=== PATIENT | female | born 1930 | race Caucasian/White ===

== ENCOUNTER 2016-11-04 14:34 | Inpatient (IN) | payer MEDICARE, OTHER ==
--- NOTE | ~2016-11-04 | OP ---
Record Of Operation [facility] [address] [place]. [address] NAME: JAYMIE GALINDO : [birth year] STATUS : DIS IN PAT#: [id number] AGE: 86 ADM/REG DATE : 11/04/16 MR#: [id number] REPORT SERV DATE: 11/10/16 DICTATED BY: REGINALDO LUO DATE: 11/10/16 REPORT STATUS : Draft TRANSCRIBED BY: MODEloy DATE: 11/10/16 DATE OF PROCEDURE: 11/04/2016 PREOPERATIVE DIAGNOSIS: Right trimalleolar open ankle fracture. POSTOPERATIVE DIAGNOSIS: Right trimalleolar open ankle fracture. PROCEDURE: 1. Right pulse lavage and debridement of right open ankle fracture. 2. Right distal fibular ankle fracture ORIF. 3. Right medial malleolar ankle fracture ORIF. 4. Right closed treatment of posterior malleolar ankle fracture. 5. Primary closure of a right open ankle fracture. SURGEON: Sailaja Luo, D.P.MDillon ANESTHESIA: Local anesthetic. ESTIMATED BLOOD LOSS: Minimal. COMPLICATION: None. INJECTABLES: Approximately 30 mL of a 1:1 mixture of 1% Xylocaine plain and 0.5% Marcaine plain. MATERIALS: Include one-third tubular neutralization plate with 3.5 screw fixation, 4.0 cancellous screws, 2-0 and 4-0 Vicryl, 4-0 nylon. CULTURES: Include aerobic, anaerobic, acid fast, fungal, Gram stain. PROCEDURE IN DETAIL: Under mild sedation, the patient was brought to the operating room and placed on the operating table in supine position. Following general anesthesia, local anesthesia obtained about the patient's right ankle. Right foot, ankle, and lower leg were scrubbed, prepped, and draped in usual aseptic manner. Attention was directed to the procedure. Procedure #1 is right lavage and debridement of open ankle fracture. Attention was directed to the open laceration into the medial aspect of the distal tibia. This measured approximately 6-8 cm. There was no exposed bone present. There was minimal to no debris visualized. At this time, copious lavage in a pulsed fashion was performed. This was done gently around the skin as the skin was atrophic and deep subcutaneous and deep fascia tissues. This was done more aggressively. Post irrigation deep cultures were taken. Attention now was directed to the next procedure. The next procedure is right distal fibular ankle fracture ORIF. Attention now was directed to the lateral aspect of the patient's right distal fibula and lateral malleolus where a Record Of Operation [facility] [address] [facility] [place] [address] NAME: JAYMIE GALINDO : [birth year] STATUS : DIS IN PAT#: [id number] AGE: 86 ADM/REG DATE : 11/04/16 MR#: [id number] REPORT SERV DATE: 11/10/16 DICTATED BY: REIGNALDO LUO DATE: 11/10/16 REPORT STATUS : Draft TRANSCRIBED BY: JOSEPHINE DATE: 11/10/16 linear 6-cm incision made along the course of the distal fibula and lateral malleolus. The incision was deep in subcutaneous tissue with care being taken to identify and retract all vital neurovascular structures. All bleeders were cauterized and ligated as necessary. At this time, a blunt dissection was continued down to the level of the fracture site of the distal fibula. Deep retraction ensued anteriorly and posteriorly. At this time, hematoma formation was debrided and irrigated from the fracture site. At this time, with increased deformity and distraction, reduction ensued with fracture reduction clamps. Next, utilizing standard AO principles and techniques, a 3.5 cortical bone screw was placed across the fracture site with excellent reduction noted. Next, one-third tubular neutralization plate was contoured and placed to the lateral aspect of the distal fibula and lateral malleolus with locking/nonlocking screw fixation. Care was being taken to prevent intra-articular excursion. Copious irrigation ensued. Deep superficial fascia reapproximated with 2-0 and 4-0 Vicryl, skin was reapproximated and coapted utilizing 4-0 nylon. Attention now was directed to the medial aspect. At this time, attention was directed to the medial aspect where further irrigation ensued at the level of the open fracture site through the 6-8 cm laceration, deep dissection continued down to the level of the medial malleolus. At this time, the fractured medial malleolus was identified and the interfrag hematoma was debrided and irrigated. At this time, reduction ensued with fracture reduction clamps. Care was being taken to identify and protect the posterior tibial tendon. Two cancellous 4.0 screws were placed across the fracture site in a cannulated fashion. Excellent positioning was noted. Good purchase was present. After further irrigation, the deep and superficial fascia reapproximated and coapted utilizing 2-0 and 4-0 Vicryl, skin was reapproximated and coapted utilizing 4-0 nylon in an interrupted suture technique. Adaptic was applied to the incision site and a well-padded sterile dressing was placed about the patient's right foot and ankle. Next procedure is closed treatment of posterior fracture. At this time, the small posterior fracture was again treated in a closed fashion. The patient tolerated the procedure and anesthesia well and was transferred to recovery room with vital signs stable and vascular status intact to all toes. Following a period of postoperative monitoring, the patient will be admitted for IV antibiotics. We will wait on cultures to come back and monitor her. The patient will be strict nonweightbearing at all times. Ice and elevate as directed. Take medications as prescribed and follow up with Dr. Luo in 7 to 14 days. ZAMZAM/JOSEPHINE Ania MckoyPAysha. / [id number] CC: Record Of Operation [address] [address] NAME: JAYMIE GALINDO : [birth year] STATUS : DIS IN PAT#: [id number] AGE: 86 ADM/REG DATE : 11/04/16 MR#: [id number] REPORT SERV DATE: 11/10/16 DICTATED BY: REGINALDO LUO DATE: 11/10/16 REPORT STATUS : Draft TRANSCRIBED BY: MODL DATE: 11/10/16 Chandrakant Mckoy M.D.
--- NOTE | ~2016-11-04 | HP ---
History And Physical [address] [place]. [address] NAME: JAYMIE GALINDO : [birth year] STATUS : REG [facility]#: [id number] AGE: 86 ADM/REG DATE : 11/04/16 MR#: [id number] REPORT SERV DATE: 11/04/16 DICTATED BY: BUCKYDOUGLAS DATE: 11/04/16 REPORT STATUS : Draft TRANSCRIBED BY: MODL DATE: 11/04/16 DATE OF ADMISSION: 11/04/2016 HISTORY OF PRESENT ILLNESS: The patient is a very pleasant 86-year-old female, who basically this morning fell because she had some dizziness and presyncopal episode on her porch and developed fracture on her right ankle. It is actually severe open fracture, and before even I saw the patient, emergency room physician Dr. Garvin called Orthopedics and Dr. Murphy came by and Dr. Murphy put splint on her leg with Dr. Garvin helping him and then Dr. Murphy said that she may have surgery tonight done by Dr. David Adams. The patient reported to me that for the last week she was weak and her blood pressure was on the low range and she was a little bit dizzy from low blood pressure. This is what happened with her when she was standing on her porch and basically had a presyncopal episode. She did not lose her consciousness completely, but she had this severe open fracture with bone protruding from her wound. She denies any chest pain. No shortness of breath. No abdominal pain. No fever. No rash. No headache. She is complaining of pain on her ankle. PAST MEDICAL HISTORY: Known for history of congestive heart failure. During recent hospitalization, when I saw her, her ejection fraction improved to 50% and also she had mild aortic stenosis and pulmonary hypertension. The patient is chronically on Lasix twice a day as well as she has a history of diastolic dysfunction as well, chronic kidney disease with creatinine being at the baseline, moderate carotid artery stenosis on the right carotid, followed by Dr. Yeh and Dr. Coulter. She has diet-controlled diabetes, hypertension, hyperlipidemia, and history of atrial fibrillation, chronically on Coumadin. PAST SURGICAL HISTORY: Includes pacemaker placement, history of cardiac catheterization, history of three C-sections, history of two hip surgeries, two knee surgeries, cholecystectomy, hysterectomy, pacemaker placement. ALLERGIES: SHE IS ALLERGIC TO MORPHINE, ADHESIVE TAPE, AND PROBABLY CODEINE. HOME MEDICATIONS: Include alendronate 70 mg a day, vitamin B complex 1 tablet daily, calcium with vitamin D 600 daily, vitamin B12 1000 mg daily, folic acid 800 mg a day, Lasix 40 mg b.i.d., glucosamine chondroitin 1000 mg daily, losartan 25 mg daily, potassium chloride 10 mEq p.o. with breakfast and supper, pravastatin 40 mg daily, vitamin E 400 units daily, vitamin D3 400 units daily, unknown vitamin daily, iron 134 mg daily, Coumadin 4 mg at bedtime, Ambien 5 mg at bedtime p.r.n. SOCIAL HISTORY: No alcohol. No smoking. No recreational drug use. FAMILY HISTORY: Mother had multiple first-degree relatives with heart disease as well as her father had heart problems. REVIEW OF SYSTEMS: All 14-point review of system done and negative except what is stated in the history of present illness. History And Physical [address] [address] NAME: JAYMIE GALINDO : [birth year] STATUS : REG [facility] PAT#: [id number] AGE: 86 ADM/REG DATE : 11/04/16 MR#: [id number] REPORT SERV DATE: 11/04/16 DICTATED BY: DOUGLAS LAWLER DATE: 11/04/16 REPORT STATUS : Draft TRANSCRIBED BY: JOSEPHINE DATE: 11/04/16 PHYSICAL EXAMINATION: GENERAL: Well-nourished, well-developed female, not in acute distress. Resting quietly. VITAL SIGNS: Blood pressure 145/51, temperature 98.4, heart rate 65, respiratory rate 18, oxygen saturation 100 on 2 L nasal cannula. HEENT: Head atraumatic, normocephalic. Conjunctivae clear. Pupils are equal and reactive to light and accommodation. Extraocular muscles are intact. NECK: Supple. Trachea is midline. No supraclavicular or cervical lymphadenopathy. LUNGS: Diminished breath sounds bilaterally. Decreased respiratory effort. CARDIOVASCULAR: Regular rate and rhythm. Point of maximal impulse not displaced. ABDOMEN: Soft, nontender, nondistended. Positive normoactive bowel sounds. EXTREMITIES: No clubbing, cyanosis, edema on the left leg. Right leg is in a splint. PSYCHIATRIC: Normal mood and affect. NEUROLOGIC: Awake, alert, and oriented in time, place, and person. Muscle strength 5/5 bilaterally in upper and lower extremities besides right leg was not tested because it is in a splint with fracture. LABORATORY RESULTS: Sodium 145, potassium 3.8, chloride 109, carbon dioxide 32, BUN 22, creatinine 1.07, blood sugar 88. Troponin 0.04. Magnesium 2.5. Baseline creatinine is 1.19. White count 7.9, hemoglobin 10.8, hematocrit 33.4, platelet count 192. PT 29.2, INR 2.8, PTT 38.7. UA did not show any evidence of UTI. Chest x-ray showed cardiomegaly, otherwise, no acute cardiopulmonary process. EKG showed ventricularly paced rhythm with a rate of 65. ASSESSMENT AND PLAN: 1. This is a very pleasant 86-year-old female, status post right ankle fracture. 2. History of congestive heart failure, chronic systolic dysfunction, ejection fraction 50%, history of mild aortic stenosis, and moderate pulmonary hypertension. 3. History of atrial fibrillation with a history of pacemaker placement. 4. History of chronic kidney disease. Creatinine being in the baseline. 5. History of moderate carotid artery stenosis. 6. History of orthostatic hypotension. Currently, the patient is stable before surgery. I discussed with family. The patient has several risk factors, one of the risk factor is her congestive heart failure, although her ejection fraction now improved to 50%. Her risk is probably moderate, but she and her family understand that this is emergency surgery. I spoke with Dr. David Adams, who is going to do this surgery tonight and I inform him that her INR is 2.8. He wanted fresh frozen plasma to be given to the patient before surgery, so two units of fresh frozen plasma are written to be given to the patient. I also spoke with, Nik, preop nurse to give these units slowly, and if necessary, she may need intravenous Lasix in between units as well as the patient should not be severely volume overloaded because of her systolic and diastolic dysfunction. This was all discussed with Dr. David Adams, orthopedist, and with the preop nurse, as well as tomorrow her Lasix should be restarted once she will be changed from n.p.o. to fluid by mouth status. Her Lasix and her JACK inhibitor needs to be readdressed History And Physical [address] [facility] [place]. [place] [address] NAME: JAYMIE GALINDO : [birth year] STATUS : REG [facility] PAT#: [id number] AGE: 86 ADM/REG DATE : 11/04/16 MR#: [id number] REPORT SERV DATE: 11/04/16 DICTATED BY: DOUGLAS LAWLER DATE: 11/04/16 REPORT STATUS : Draft TRANSCRIBED BY: MODL DATE: 11/04/16 tomorrow as well as the Coumadin should be readdressed by Dr. David Adams when she will be okay to be started on Coumadin. Everything was discussed with the patient and family. The patient was very stable before surgery. MG/JOSEPHINE Douglas Lawler M.D. / [id number] CC: Chandrakant Mckoy M.D.
--- NOTE | ~2016-11-04 | DS ---
Discharge Summary [facility] [address] [place]. [address] NAME: JAYMIE GALINDO : [birth year] STATUS : DIS IN PAT#: [id number] AGE: 86 ADM/REG DATE : 11/04/16 MR#: [id number] REPORT SERV DATE: 11/21/16 DICTATED BY: REGINALDO LUO DATE: 11/18/16 REPORT STATUS : Draft TRANSCRIBED BY: JOSEPHINE DATE: 11/18/16 Data Collection from hospitalization DISCHARGE DIAGNOSES: 1. Right trimalleolar open ankle fracture. 2. Diet-controlled diabetes. 3. Hypertension. 4. Hyperlipidemia. 5. History of atrial fibrillation. 6. History of pacemaker placement. 7. History of congestive heart failure. CONSULTATIONS: Dr. Cornell Coulter and Dr. Madelyn Urbano. PROCEDURES PERFORMED: 1. Right pulse lavage and debridement of right open ankle fracture, right distal fibular ankle fracture open reduction and internal fixation, right medial malleolar ankle fracture open reduction and internal fixation, right closed treatment of posterior malleolar ankle fracture, primary closure of right open ankle fracture, 11/04/2016. 2. Carotid blood flow study, 11/07/2016. DISCHARGE MEDICATIONS: 1. Vitamin B12 1000 mcg every morning. 2. Caltrate plus D 600 mg every morning. 3. Vitamin D 400 units daily. 4. Colace 100 mg with meals. 5. Folic acid 800 mcg every morning. 6. Lasix 20 mg daily. 7. Fosamax 70 mg every seven days. 8. Citrate of magnesia 300 mL daily. 9. MiraLAX powder one packet at bedtime. 10.Pravachol 40 mg at bedtime. 11.Vitamin E 400 units every morning. 12.Stresstabs one tablet once daily. 13.Coumadin 4 mg at bedtime as instructed. 14.Ambien 5 mg at bedtime as needed. 15.Vitamin D3 400 units every morning. 16.Glucosamine 1000 mg every morning. 17.Vitamin B one tablet every morning. 18.Iron sulfate 300 mg as instructed. 19.Percocet 5/325 one to two tablets every four to six hours as needed. 20.Amiodarone 100 mg twice a day. 21.Phenergan 25 mg every six hours as needed. CONDITION AT DISCHARGE: Stable. DISPOSITION: The patient discharged to [facility] on a low-sodium diet with activities as instructed. Discharge Summary [address] [place]. [address] NAME: JAYMIE GALINDO : [birth year] STATUS : DIS IN PAT#: [id number] AGE: 86 ADM/REG DATE : 11/04/16 MR#: [id number] REPORT SERV DATE: 11/21/16 DICTATED BY: REGINALDO LUO DATE: 11/18/16 REPORT STATUS : Draft TRANSCRIBED BY: JOSEPHINE DATE: 11/18/16 HOSPITAL COURSE: This is an 86-year-old female, who fell on the morning of this admission because she had some dizziness and presyncopal episode on her porch. She was found to have a fracture of the right ankle. It was actually a severe open fracture. In the emergency room, Dr. Murphy had placed a splint on her leg with the help of Dr. Garvin. The patient had reported she had been weak over the past week and that her blood pressure was in the low range and that she was a little bit dizzy from low blood pressure. She was seen by Dr. Madelyn Urbano. The patient said she was standing on her porch and basically had a presyncopal episode. She did not lose her consciousness completely, but she did have this severe open fracture with bone protruding from the wound. She denied any chest pain. Her EKG showed a ventricularly paced rhythm with a rate of 65. It was felt that she would need to undergo surgical intervention. She was admitted to the hospital for further evaluation and treatment. Upon admission, urinalysis did not show any evidence of urinary tract infection. Chest x- ray showed cardiomegaly, otherwise no acute cardiopulmonary process. INR level was 2.8. Fresh frozen plasma was going to be given to the patient prior to surgery. Two units of fresh frozen plasma were given. Her Lasix would be restarted the following day once she was changed from n.p.o. to fluid by mouth status. Her Lasix and JACK inhibitor would be readdressed the following day as well as the Coumadin. The patient was very stable prior to surgery. The patient was taken to the operating room, where she underwent the above- mentioned procedure. She tolerated this well and there were no complications. On postop day one, she was evaluated by Physical Therapy. She had no complaints. She had no shortness of breath or chest pain. She denied nausea, vomiting, fevers, or chills. She had some bilateral knee pain. She remained nonweightbearing. A splint was in place. Ancef was continued. She said she was feeling better. On the , she did have some constipation, otherwise she was doing well. PER hose were in place. She was encouraged to mobilize with Physical Therapy. Coumadin had not been restarted yet. Home blood pressure medications were being held. She did have some constipation. On the , she seemed to be doing much better. She said her pain was under much better control at this time. Losartan was on hold. She was nonweightbearing on the right lower extremity. Discharge planning was performed. On 11/08/2016, she was seen by Dr. Cornell Coulter regarding ventricular arrhythmia. The previous evening in the middle of the night, she had an asymptomatic short run of nonsustained ventricular tachycardia. She had had no symptoms of palpitations. She did describe some lightheadedness occasionally, but this had also been more correlated on an outpatient basis with some lower blood pressures, which had been stable here in the hospital. She denied chest pain. She had some chronic edema without change. Review of the telemetry strips showed underlying atrial fibrillation with one short run of nonsustained ventricular tachycardia. It was unclear whether that could have contributed to her initial presentation with mechanical fall and questionable associated dizziness. Her left ventricular function had been normal. Given her age, he felt that we would try amiodarone to suppress any ventricular focus and it was recommended that we restart chronic anticoagulation when she was stable from a surgical standpoint. He saw no cardiac contraindication for skilled care and rehab. Discharge instructions were given. Due to her improved and stable condition, she was discharged to [facility] with the above- stated instructions. Discharge Summary [address] [address] NAME: JAYMIE GALINDO : [birth year] STATUS : DIS IN PAT#: [id number] AGE: 86 ADM/REG DATE : 11/04/16 MR#: [id number] REPORT SERV DATE: 11/21/16 DICTATED BY: REGINALDO LUO DATE: 11/18/16 REPORT STATUS : Draft TRANSCRIBED BY: JOSEPHINE DATE: 11/18/16 Information collected by: Isabella Crump I submit the above information as my discharge summary. KLEVER/JOSEPHINE Sailaja Luo D.P.M. / [id number] CC: Chandrakant Mckoy M.D. William Oellerich, M.D., Ph.D, F.A.C.C. Daryl Cisneros M.D. [facility]
--- NOTE | ~2016-11-04 | CN ---
Consultation Report [facility] [address] [place]. [address] NAME: JAYMIE GALINDO : [birth year] STATUS : ADM IN [facility]#: [id number] AGE: 86 ADM/REG DATE : 11/04/16 MR#: [id number] REPORT SERV DATE: 11/05/16 DICTATED BY: OLGA GONZALES DATE: 11/04/16 REPORT STATUS : Draft TRANSCRIBED BY: MODL DATE: 11/04/16 CONSULTATION AND EMERGENCY ROOM NOTE DATE OF CONSULTATION: 11/04/2016 CHIEF COMPLAINT: Right ankle pain. HISTORY OF PRESENT ILLNESS: 86-year-old patient presented to the emergency department at [facility] for evaluation after a fall at home, with a deforming injury to her right ankle and laceration. She was evaluated in the emergency department. Radiographs indicating fracture dislocation grade 2 open. Orthopedic consultation was obtained. The patient did have an intact neurovascular exam distally to the foot. She had a gentle reduction maneuver performed with Alen maneuver and a posterior splint was applied with Betadine-soaked sponge of the medial laceration. The patient medicine having had a hip arthroplasty and knee arthroplasty by Dr. Ling. Family requested medicine, therefore, following emergency care was provided orthopedically in the emergency department for fracture stabilization. Post splint application, the patient had decrease in her pain. She had an intact exam to the digits, to motor function, and light touch sensation was intact with good capillary refill. EC/CLEVEL Olga Gonzales M.D. / [id number] CC: Chandrakant Mckoy M.D.
--- NOTE | ~2016-11-04 | CN ---
Consultation Report [facility] [address] [place]. [address] NAME: JAYMIE GALINDO : [birth year] STATUS : ADM IN [facility]#: [id number] AGE: 86 ADM/REG DATE : 11/04/16 MR#: [id number] REPORT SERV DATE: 11/08/16 DICTATED BY: CORNELL LUJAN DATE: 11/08/16 REPORT STATUS : Draft TRANSCRIBED BY: JOSEPHINE DATE: 11/08/16 CARDIOLOGY CONSULTATION DATE OF CONSULTATION: REASON FOR CONSULTATION: Ventricular arrhythmia. HISTORY OF PRESENT ILLNESS: Ms. Galindo is an 86-year-old woman well known to me with a history of chronic atrial fibrillation and chronic diastolic congestive heart failure with history of pacemaker placement. She was admitted to the hospital after a mechanical fall and an ankle fracture. She has had it repaired, has been recovering well. Yesterday evening or in the middle of the night, she had an asymptomatic short run of nonsustained ventricular tachycardia. She has had no symptoms of palpitations. She did describe some lightheadedness occasionally, but this has also been more correlated on an outpatient basis with some lower blood pressures, which have been stable here in the hospital. She denies chest pain. She has some chronic edema without change. No fevers or chills. No nausea or vomiting. REVIEW OF SYSTEMS: The review of systems is as per the history of present illness. Ten other systems are negative. PAST MEDICAL HISTORY: 1. Chronic atrial fibrillation, on chronic anticoagulation. 2. Hypertension. 3. Pacemaker placement. 4. Carotid disease. 5. History of chronic and diastolic congestive heart failure. FAMILY HISTORY: Positive for heart disease. SOCIAL HISTORY: No current tobacco or alcohol reported. ALLERGIES: MORPHINE. HOME MEDICATIONS: Fosamax, Caltrate, B12, folic acid, Lasix 40 p.o. b.i.d., losartan 25 daily, potassium, Pravachol, vitamin E, warfarin as directed, Ambien 5 at bedtime. PHYSICAL EXAMINATION: VITAL SIGNS: Heart rate 65, blood pressure 159/79. GENERAL: The patient is pleasant, elderly white female, in no apparent distress. HEENT: Conjunctivae are anicteric, no xanthelasma, lips without cyanosis. NECK: Supple, normal JVP, carotids +2 without bruit. LUNGS: Clear to auscultation. Consultation Report [facility] [address] [place]. [address] NAME: JAYMIE GALINDO : [birth year] STATUS : ADM IN PAT#: [id number] AGE: 86 ADM/REG DATE : 11/04/16 MR#: [id number] REPORT SERV DATE: 11/08/16 DICTATED BY: CORNELL LUJAN DATE: 11/08/16 REPORT STATUS : Draft TRANSCRIBED BY: MODEloy DATE: 11/08/16 CARDIOVASCULAR: Irregularly irregular. Normal S1, S2. ABDOMEN: Soft, nontender, nondistended, with normal bowel sounds. No hepatomegaly. EXTREMITIES: No clubbing or cyanosis. There is a cast over the right ankle. NEURO/PSYCH: Alert and oriented to person, place and time. No obvious neurologic deficits. Mood and affect normal. DATA: Review of telemetry strip shows underlying atrial fibrillation with one short run of nonsustained ventricular tachycardia. IMPRESSION: 1. Asymptomatic nonsustained ventricular tachycardia. 2. Chronic atrial fibrillation. 3. Chronic diastolic congestive heart failure. 4. Fall with ankle fracture. 5. Carotid disease. RECOMMENDATIONS: Ms. Galindo had a short run of nonsustained ventricular tachycardia. It is unclear whether that could have contributed to her initial presentation with mechanical fall and questionable associated dizziness. Her left ventricular function has been normal. Given her age, I think I am just going to try amiodarone to suppress any ventricular focus and I have recommended restarting chronic anticoagulation when stable from a surgical standpoint. I see no cardiac contraindication for skilled care and rehab. Thank you for this consultation. Please contact me if you have any further questions. WO/JOSEPHINE Cornell Lujan M.D., Ph.D, F.A.C.C. / [id number] CC: Chandrakant Mckoy M.D.
[~2016-11-04 14:34] MED LIST: ACTOS15 PO; ALEVE220 MG PO; AMB5 PO; AMITIZA24 PO; C1 PO; C2 PO; C25 PO; CALCIUM; CALTRA600D PO; CARDCD120 PO; CARTIA XT240 MG/24 PO; CAT1 PO; CENTRUM TAB1 TAB PO; CINNAMON PO; CINNAMONPO PO; CITRACAL PO; COREG6 PO; COUMADIN3 MG PO; COUMADIN4 MG PO; COZ25 PO; COZ50 PO; COZAAR100 MG PO; DIGITEK0.125 MG PO; DIOV160 PO; DIOVAN HC1 PO; DIOVAN HCT160 MG/25 PO; DOCUSOFT S100 MG PO; DSS PO; FERROUS SULF324 MG PO; FERROUS SULF325 M1 PO; FISH OIL1200 MG PO; FISH-EPA1000 MG PO; FOLIC ACID400 MC1 PO; FOLIC ACID800 MCG PO; FOLIC PO; Folic Acid; GLUCCHONDR PO; GLUCOSAMINE SULFATE PO; GLUCOSAMINEPO PO; HCTZ25B PO; IRON PO; JANTOVEN2.5 MG PO; KDUR20 PO; KLOR-CON 1010 MEQ PO; KLOR-CON M2020 MEQ PO; L20 PO; L40 PO; LOPID6 PO; MIRALAXPKT PO; MULTIPLE VIT PO; MULTIVITAMI1 PO; NORCO1 TA2 PO; NORV25 PO; OS500+D PO; PEP20 PO; PLAVIX PO; PRAVACHOL40 MG PO; PRESERVISION; PREV15 PO; PRILO PO; PRILOSEC40 MG PO; PRIN10 PO; RECLAST IV; STOOL SOFTENER PO; TAZTIA X3 PO; THERGRANM PO; ULTRAM50 PO; VITAMIN D1000 UNI1 PO; VITAMIN D31000 UNIT PO; VITAMIN D400 UNI1 PO; VITE PO; ZOCOR40 PO; [UNRECOGNIZED DRUG - OTHER]; [UNRECOGNIZED DRUG - OTHER] PO
[2016-11-04 16:24] LABS: BASOPHILS 0.1 %; BASOPHILS ABSOLUTE 0.01 10/3/uL (0.0-0.16); EOSINOPHILS 2.3 %; EOSINOPHILS ABSOLUTE 0.18 10/3/uL (0.0-0.53); ER CBC TAT 0 Hrs 05 Mins; HEMATOCRIT 33.4 % (36.0-48.0); HEMOGLOBIN 10.8 g/dL (12.0-16.0); IMMATURE GRANULOCYTES 0.3 %; IMMATURE GRANULOCYTES ABSOLUTE 0.02 10/3/uL (0.0-0.11); LYMPHOCYTES 14.3 %; LYMPHOCYTES ABSOLUTE 1.12 10/3/uL (0.67-4.30); MEAN CORPUS HGB CONC 32.3 g/dL (32.0-36.0); MEAN CORPUSCULAR HEMOGLOB 29.9 pg (26.0-34.0); MEAN PLATELET VOLUME 9.2 fL (9.2-13.0); MONOCYTES 9.9 %; MONOCYTES ABSOLUTE 0.78 10/3/uL (0.21-1.20); NEUTROPHILS 73.1 %; NEUTROPHILS ABSOLUTE 5.74 10/3/uL (2.02-8.40); PLATELET COUNT 192 10/3/uL (150-400); RBC DISTRIBUTION WIDTH 13.1 % (12.0-16.0); RED CELL COUNT 3.61 10/6/uL (4.0-5.6); WHITE BLOOD CELLS 7.9 10/3/uL (4.5-10.5)
[2016-11-04 16:25] LABS: MANUAL DIFF NO %; MEAN CORPUSCULAR VOLUME 92.5 fL (80-100)
[2016-11-04 16:30] LABS: ASCORBIC ACID (UR NOT ORDER) 40 (NEG); BILIRUBIN, URINE NEGATIVE (NEG); ER URINALYSIS TAT 0 Hrs 10 Mins; KETONE, URINE NEGATIVE (NEG); LEUKOCYTE ESTERASE(NOT OR NEG (NEG); NITRITE (URINE) NEG (NEG); WBC (NOT ORDERED) (RFLEX) 1 (0-5)
[2016-11-04 16:32] LABS: INTERNATIONAL NORMAL RATI 2.8 UNITS (-); PARTIAL THROMBO TIME 38.7 SEC (22.5-37.2)
[2016-11-04 16:33] LABS: PROTIME (NOT ORD) 29.2 SEC (12.0-14.5)
[2016-11-04 16:38] LABS: BUN (BLOOD UREA NITROGEN) 22 MG/DL (6-23); CALCIUM, SERUM 9.5 MG/DL (8.5-10.4); CHEST PAIN PROFILE TAT 0 Hrs 19 Mins; CHLORIDE, SERUM 109 MMOL/L (96-112); CO2 (CARBON DIOXIDE) 32 MMOL/L (24-34); CREATININE 1.07 MG/DL (0.55-1.02); GFR AFRICAN AMERICAN 54 ML/MIN (>=60); GFR NON AFRICAN AMERICAN 46 ML/MIN (>=60); GLUCOSE, SERUM 88 MG/DL (60-99); POTASSIUM, SERUM 3.8 MMOL/L (3.5-5.3); SODIUM, SERUM 145 MMOL/L (135-148); TROPONIN I 0.04 NG/ML (<0.05)
[2016-11-04] MEDS ORDERED: FOSAMAX70 MG PO (18:24)
[2016-11-04] MEDS ORDERED: COUMADIN4 MG PO (18:25)
[2016-11-04] MEDS ORDERED: PRAVACHOL40 MG PO (18:25)
[2016-11-04] MEDS ORDERED: AMB5 PO (18:26)
[2016-11-04] MEDS ORDERED: KLOR-CON 1010 MEQ PO (18:26)
[2016-11-04] MEDS ORDERED: L40 PO (18:26)
[2016-11-04] MEDS ORDERED: COZ25 PO (18:30)
[2016-11-04] MEDS ORDERED: VITAMIN D3 PO (18:31)
[2016-11-04] MEDS ORDERED: FOLIC ACID800 MCG PO (18:31)
[2016-11-04] MEDS ORDERED: GLUCOSAMINEPO PO (18:32)
[2016-11-04] MEDS ORDERED: VITAMIN B-121000 MC1 PO (18:32)
[2016-11-04] MEDS ORDERED: VITE PO (18:32)
[2016-11-04] MEDS ORDERED: CALTRA600D PO (18:32)
[2016-11-04] MEDS ORDERED: VITAMIN B PO (18:33)
[2016-11-04] MEDS ORDERED: [UNRECOGNIZED DRUG - REMARK] PO (18:34)
[2016-11-04] MEDS ORDERED: FESO4 PO (18:35)
[2016-11-04 23:51] LABS: INTERNATIONAL NORMAL RATI 1.7 UNITS (-)
[2016-11-04 23:52] LABS: PROTIME (NOT ORD) 20.2 SEC (12.0-14.5)
[2016-11-05 06:55] LABS: ASCORBIC ACID (UR NOT ORDER) 40 (NEG); BILIRUBIN, URINE NEGATIVE (NEG); KETONE, URINE NEGATIVE (NEG); LEUKOCYTE ESTERASE(NOT OR LARGE (NEG); WBC (NOT ORDERED) (RFLEX) 84 (0-5)
[2016-11-05 07:25] LABS: BASOPHILS 0.2 %; BASOPHILS ABSOLUTE 0.01 10/3/uL (0.0-0.16); EOSINOPHILS 0 %; HEMOGLOBIN 9.4 g/dL (12.0-16.0); IMMATURE GRANULOCYTES 0.2 %; IMMATURE GRANULOCYTES ABSOLUTE 0.01 10/3/uL (0.0-0.11); LYMPHOCYTES 8.5 %; LYMPHOCYTES ABSOLUTE 0.49 10/3/uL (0.67-4.30); MEAN CORPUS HGB CONC 32.5 g/dL (32.0-36.0); MEAN CORPUSCULAR VOLUME 92.3 fL (80-100); MEAN PLATELET VOLUME 9.3 fL (9.2-13.0); MONOCYTES 6.1 %; MONOCYTES ABSOLUTE 0.35 10/3/uL (0.21-1.20); NEUTROPHILS ABSOLUTE 4.91 10/3/uL (2.02-8.40); PLATELET COUNT 161 10/3/uL (150-400); RBC DISTRIBUTION WIDTH 13.3 % (12.0-16.0); RED CELL COUNT 3.13 10/6/uL (4.0-5.6); WHITE BLOOD CELLS 5.8 10/3/uL (4.5-10.5)
[2016-11-05 07:27] LABS: HEMATOCRIT 28.9 % (36.0-48.0); MANUAL DIFF NO %
[2016-11-05 07:31] LABS: INTERNATIONAL NORMAL RATI 1.8 UNITS (-); PROTIME (NOT ORD) 20.9 SEC (12.0-14.5)
[2016-11-05 07:49] LABS: BUN (BLOOD UREA NITROGEN) 22 MG/DL (6-23); CALCIUM, SERUM 8.8 MG/DL (8.5-10.4); CHLORIDE, SERUM 107 MMOL/L (96-112); CO2 (CARBON DIOXIDE) 33 MMOL/L (24-34); CREATININE 1.28 MG/DL (0.55-1.02); GFR AFRICAN AMERICAN 43 ML/MIN (>=60); GFR NON AFRICAN AMERICAN 37 ML/MIN (>=60); POTASSIUM, SERUM 4.1 MMOL/L (3.5-5.3); SODIUM, SERUM 142 MMOL/L (135-148)
[2016-11-05 07:51] LABS: GLUCOSE, SERUM 162 MG/DL (60-99); ULTRASENSITIVE TSH 0.911 MCIU/ML (0.358-3.740)
[2016-11-06 05:27] LABS: BASOPHILS 0.1 %; BASOPHILS ABSOLUTE 0.01 10/3/uL (0.0-0.16); EOSINOPHILS ABSOLUTE 0.16 10/3/uL (0.0-0.53); HEMATOCRIT 26.9 % (36.0-48.0); HEMOGLOBIN 8.9 g/dL (12.0-16.0); IMMATURE GRANULOCYTES 0.3 %; IMMATURE GRANULOCYTES ABSOLUTE 0.02 10/3/uL (0.0-0.11); LYMPHOCYTES 15.7 %; LYMPHOCYTES ABSOLUTE 1.23 10/3/uL (0.67-4.30); MEAN CORPUS HGB CONC 33.1 g/dL (32.0-36.0); MEAN CORPUSCULAR HEMOGLOB 30.9 pg (26.0-34.0); MEAN CORPUSCULAR VOLUME 93.4 fL (80-100); MEAN PLATELET VOLUME 9.7 fL (9.2-13.0); MONOCYTES 12.6 %; MONOCYTES ABSOLUTE 0.99 10/3/uL (0.21-1.20); NEUTROPHILS 69.3 %; NEUTROPHILS ABSOLUTE 5.43 10/3/uL (2.02-8.40); PLATELET COUNT 156 10/3/uL (150-400); RBC DISTRIBUTION WIDTH 13.4 % (12.0-16.0); RED CELL COUNT 2.88 10/6/uL (4.0-5.6); WHITE BLOOD CELLS 7.8 10/3/uL (4.5-10.5)
[2016-11-06 05:29] LABS: INTERNATIONAL NORMAL RATI 2.1 UNITS (-); MANUAL DIFF NO %; PROTIME (NOT ORD) 23.7 SEC (12.0-14.5)
[2016-11-06 05:42] LABS: CALCIUM, SERUM 9.2 MG/DL (8.5-10.4); CHLORIDE, SERUM 103 MMOL/L (96-112); CO2 (CARBON DIOXIDE) 29 MMOL/L (24-34); CREATININE 1.39 MG/DL (0.55-1.02); GFR AFRICAN AMERICAN 39 ML/MIN (>=60); GFR NON AFRICAN AMERICAN 34 ML/MIN (>=60); SODIUM, SERUM 140 MMOL/L (135-148)
[2016-11-06 05:44] LABS: BUN (BLOOD UREA NITROGEN) 36 MG/DL (6-23); GLUCOSE, SERUM 112 MG/DL (60-99)
[2016-11-07 07:06] LABS: BASOPHILS 0.3 %; BASOPHILS ABSOLUTE 0.02 10/3/uL (0.0-0.16); EOSINOPHILS 5.2 %; EOSINOPHILS ABSOLUTE 0.35 10/3/uL (0.0-0.53); HEMATOCRIT 26.9 % (36.0-48.0); HEMOGLOBIN 8.5 g/dL (12.0-16.0); IMMATURE GRANULOCYTES 0.3 %; IMMATURE GRANULOCYTES ABSOLUTE 0.02 10/3/uL (0.0-0.11); LYMPHOCYTES 20.1 %; LYMPHOCYTES ABSOLUTE 1.36 10/3/uL (0.67-4.30); MEAN CORPUS HGB CONC 31.6 g/dL (32.0-36.0); MEAN CORPUSCULAR HEMOGLOB 30.2 pg (26.0-34.0); MEAN CORPUSCULAR VOLUME 95.7 fL (80-100); MEAN PLATELET VOLUME 9.8 fL (9.2-13.0); MONOCYTES 12.7 %; MONOCYTES ABSOLUTE 0.86 10/3/uL (0.21-1.20); NEUTROPHILS 61.4 %; NEUTROPHILS ABSOLUTE 4.14 10/3/uL (2.02-8.40); PLATELET COUNT 172 10/3/uL (150-400); RBC DISTRIBUTION WIDTH 13.3 % (12.0-16.0); RED CELL COUNT 2.81 10/6/uL (4.0-5.6); WHITE BLOOD CELLS 6.8 10/3/uL (4.5-10.5)
[2016-11-07 07:07] LABS: MANUAL DIFF NO %
[2016-11-07 07:16] LABS: INTERNATIONAL NORMAL RATI 1.7 UNITS (-); PROTIME (NOT ORD) 19.5 SEC (12.0-14.5)
[2016-11-07 07:19] LABS: BUN (BLOOD UREA NITROGEN) 35 MG/DL (6-23); CALCIUM, SERUM 9.3 MG/DL (8.5-10.4); CHLORIDE, SERUM 105 MMOL/L (96-112); CO2 (CARBON DIOXIDE) 33 MMOL/L (24-34); CREATININE 1.15 MG/DL (0.55-1.02); GFR AFRICAN AMERICAN 49 ML/MIN (>=60); GFR NON AFRICAN AMERICAN 42 ML/MIN (>=60); GLUCOSE, SERUM 110 MG/DL (60-99); POTASSIUM, SERUM 4.5 MMOL/L (3.5-5.3); SODIUM, SERUM 141 MMOL/L (135-148)
[2016-11-08 05:27] LABS: BASOPHILS 0.3 %; BASOPHILS ABSOLUTE 0.02 10/3/uL (0.0-0.16); EOSINOPHILS 7.5 %; EOSINOPHILS ABSOLUTE 0.44 10/3/uL (0.0-0.53); HEMATOCRIT 25.9 % (36.0-48.0); HEMOGLOBIN 8.4 g/dL (12.0-16.0); IMMATURE GRANULOCYTES 0.2 %; IMMATURE GRANULOCYTES ABSOLUTE 0.01 10/3/uL (0.0-0.11); LYMPHOCYTES 20.4 %; MEAN CORPUS HGB CONC 32.4 g/dL (32.0-36.0); MEAN CORPUSCULAR HEMOGLOB 30.7 pg (26.0-34.0); MEAN CORPUSCULAR VOLUME 94.5 fL (80-100); MEAN PLATELET VOLUME 9.6 fL (9.2-13.0); MONOCYTES 11.8 %; MONOCYTES ABSOLUTE 0.69 10/3/uL (0.21-1.20); NEUTROPHILS 59.8 %; NEUTROPHILS ABSOLUTE 3.51 10/3/uL (2.02-8.40); PLATELET COUNT 193 10/3/uL (150-400); RBC DISTRIBUTION WIDTH 13.3 % (12.0-16.0); RED CELL COUNT 2.74 10/6/uL (4.0-5.6); WHITE BLOOD CELLS 5.9 10/3/uL (4.5-10.5)
[2016-11-08 05:29] LABS: INTERNATIONAL NORMAL RATI 1.5 UNITS (-); PROTIME (NOT ORD) 18.2 SEC (12.0-14.5)
[2016-11-08 05:30] LABS: MANUAL DIFF NO %
[2016-11-08 05:37] LABS: BUN (BLOOD UREA NITROGEN) 35 MG/DL (6-23); CALCIUM, SERUM 9.3 MG/DL (8.5-10.4); CHLORIDE, SERUM 103 MMOL/L (96-112); CO2 (CARBON DIOXIDE) 34 MMOL/L (24-34); CREATININE 1.31 MG/DL (0.55-1.02); GFR AFRICAN AMERICAN 42 ML/MIN (>=60); GFR NON AFRICAN AMERICAN 36 ML/MIN (>=60); GLUCOSE, SERUM 115 MG/DL (60-99); POTASSIUM, SERUM 4.7 MMOL/L (3.5-5.3); SODIUM, SERUM 138 MMOL/L (135-148)
[2017-01-02] MEDS ORDERED: SUPER B COMP PO (23:03)
[2017-01-02] MEDS ORDERED: FOLIC ACID800 MCG PO (23:03)
[2017-01-02] MEDS ORDERED: VITAMIN D31000 UNIT PO (23:04)
[2017-01-02] MEDS ORDERED: OYST-CAL500 MG PO (23:04)
[2017-01-02] MEDS ORDERED: CYANO1000T PO (23:04)
[2017-01-02] MEDS ORDERED: FOSAMAX70 MG PO (23:04)
[2017-01-02] MEDS ORDERED: MIRALAX POWDER1 PKT PO (23:05)
[2017-01-02] MEDS ORDERED: PRAVACHOL40 MG PO (23:05)
[2017-01-02] MEDS ORDERED: PACERONE100 MG PO (23:05)
[2017-01-02] MEDS ORDERED: DOK100 MG PO (23:05)
[2017-01-02] MEDS ORDERED: ZINC220C PO (23:05)
[2017-01-02] MEDS ORDERED: GLUCCHONDR PO (23:06)
[2017-01-02] MEDS ORDERED: KLOR-CON M2020 MEQ PO (23:06)
[2017-01-02] MEDS ORDERED: NORV5 PO (23:06)
[2017-01-02] MEDS ORDERED: L40 PO (23:07)
[2017-01-02] MEDS ORDERED: VITE PO (23:07)
[2017-01-02] MEDS ORDERED: PCET PO (23:08)
[2017-01-02] MEDS ORDERED: AMB5 PO (23:08)
[2017-01-02] MEDS ORDERED: C2 PO (23:08)
[2017-01-02] MEDS ORDERED: X25 PO (23:08)
== END 2016-11-08 17:26 | DRG 493 ==
LOC: ER 14:34 → SDC 18:56 → SDC/OF 23:15 → 1SO 11-05 00:29
PROVIDERS: Emergency Medicine; Internal Medicine; Podiatrist Foot & Ankle Surgery
PROC: 0QSG04Z Reposition Right Tibia with Internal Fixation Device, Open Approach (ICD-10-PCS; 2016-11-04)
PROC: 0QSGXZZ Reposition Right Tibia, External Approach (ICD-10-PCS; 2016-11-04)
PROC: 30233L1 Transfusion of Nonautologous Fresh Plasma into Peripheral Vein, Percutaneous Approach (ICD-10-PCS; 2016-11-04)
PROC: 0QSJ04Z Reposition Right Fibula with Internal Fixation Device, Open Approach (ICD-10-PCS; principal; 2016-11-04 19:15)
DX: S82.851B Displaced trimalleolar fracture of right lower leg, initial encounter for open fracture type I or II (principal); I47.2 Ventricular tachycardia; D68.9 Coagulation defect, unspecified; I50.32 Chronic diastolic (congestive) heart failure; D62 Acute posthemorrhagic anemia; I13.0 Hypertensive heart and chronic kidney disease with heart failure and stage 1 through stage 4 chronic kidney disease, or unspecified chronic kidney disease; E11.22 Type 2 diabetes mellitus with diabetic chronic kidney disease; N18.3 Chronic kidney disease, stage 3 (moderate); I48.2 Chronic atrial fibrillation; E78.5 Hyperlipidemia, unspecified; I65.21 Occlusion and stenosis of right carotid artery; T45.515A Adverse effect of anticoagulants, initial encounter; K21.9 Gastro-esophageal reflux disease without esophagitis; K59.09 Other constipation; I35.0 Nonrheumatic aortic (valve) stenosis; D63.1 Anemia in chronic kidney disease; M81.0 Age-related osteoporosis without current pathological fracture; W18.30XA Fall on same level, unspecified, initial encounter; Z79.01 Long term (current) use of anticoagulants; Z79.899 Other long term (current) drug therapy; Z95.0 Presence of cardiac pacemaker; Z88.5 Allergy status to narcotic agent; Z91.040 Latex allergy status; Z91.048 Other nonmedicinal substance allergy status
CPT/HCPCS: 36415; 71010; 73560-50; 73610-RT; 76000; 80048; 81001; 82533; 83735; 84443; 84484; 85025; 85610; 85730; 86900; 86901; 87015; 87070; 87075; 87086; 87102; 87116; 87205; 93005; 93880; 96374; 96375; 97110-GP; 97162-GP; 97530-GP; 99285; A9270-GY; C1713; G8978-CM-GP; G8979-CL-GP; J0690; J1170; J2405; J3010; P9059